=== PATIENT | male | born 1945 | race Caucasian/White ===

== ENCOUNTER 2021-11-20 06:36 | Day surgery (SDC) | payer MEDICARE, SELFPAY ==
[2021-11-14 11:18] VITALS: BMI 22.0
[2021-11-20 06:41] VITALS: BMI 20.3
[2021-11-20 06:46] VITALS: BP 122/46; PULSE 62; RESP 16; TEMP 36.1; O2SAT 99
[2021-11-20] MEDS: Lactated Ringers 1,000 ML 100 ML IVCONT (07:06)
--- NOTE | 2021-11-20 07:24 | P.HPSUR_ITS ---
Pre-Procedural Eval Section A Date of Service: 11/20/21 Section B Chief Complaint: Ulcerative (chronic) pancolitis without complicati Details of Present Illness: see H&P no changes Relevant Family History (Specify if Yes): No Relevant Social History: None Present Medications: see Short Stay Collaborative assessment Medical History: No relevant PMH History of Previous Operations: No relevant previous surgery Allergies: Allergies Allergy/AdvReac Type Severity Reaction Status Date / Time No Known Allergies Allergy Verified 11/14/21 11:18 Review of Systems Sugical H&P ROS: Negative: Constitution, Cardiovascular, Respiratory, Neurol ogical, Psychiatric, Hem-Onc, Allergic/Immunologic, Gastrointestinal, Genitourinary, Musculoskeletal, Integumentary, Endocrine and Eyes/Ears/Nose/Throat Exam Surgical H&P Exam: Normal: HEENT, Normal: Heart, Normal: Lungs, Normal: Extremities, Normal: Abdomen, Normal: Skin and Normal: Neurological Plan Diagnosis/Plan: Unchanged I have reviewed the history and physical and performed a pertinent physical examination on my patient. No changes have occurred unless specified.
--- NOTE | 2021-11-20 07:29 | P.CONAN_ITS ---
HPI - Anesthesia Eval Consult details Narrative: 76 yo male patient for colonoscopy [facility] Past Medical History Medical History (Updated 11/20/21 @ 06:59 by Bushra Victoria, RN) Elevated cholesterol Heart murmur Mitral valve prolapse Prostate cancer Ulcerative colitis Family History Family history of problems with anesthesia: No Surgical History Surgical History (Updated 11/14/21 @ 11:18 by Mohini Webber RN) H/O colonoscopy History of prostate surgery History of Problems with Anesthesia: No Social History Social History Patient Tobacco Use Status: Never used Tobacco Use of substances other than those prescribed or required for medical reasons: No Are you DNR?: No Advance Directives: No Advance Directives Information Provided: Yes Recently lost weight without trying: No Nutrition Risks: No Nutritional Risk Meds Allergies Allergy/AdvReac Type Severity Reaction Status Date / Time No Known Allergies Allergy Verified 11/14/21 11:18 Home Medications Medication Instructions Recorded Confirmed Last Taken Type folic acid 1 mg tablet 1 mg PO DAILY 11/14/21 11/14/21 Unknown History rosuvastatin 20 mg tablet 20 mg PO DAILY 11/14/21 11/14/21 Unknown History sulfasalazine 500 mg tablet 1 g PO TID 11/14/21 11/14/21 Unknown History Exam Exam Date and Time: November 20, 2021 0729 Height,Weight and Vital Signs: Height 6 ft Weight 68.039 kg Last Vital Signs Temp 97.0 F 11/20/21 06:46 Pulse 62 11/20/21 06:46 Resp 16 11/20/21 06:46 BP 122/46 L 11/20/21 06:46 Pulse Ox 99 11/20/21 06:46 Airway Mallampati Class: II TM Dist: >3cm Neck ROM: Full Loose/Missing/Broken Teeth: No Heart: RRR Lungs: CTAB Assessment and Plan Assessment Anesthesia Assessment: Anesthesia Plan Discussed and Chart Reviewed Final Anesthetic Review Family History of Problems with Anesthesia: No History of Problems with Anesthesia: No NPO: Yes ASA Class: II Final Preanesthetic Review: No Changes in Pt Med Stat, Meds/Allgs Chart Reviewed, Consent Obtained/Reviewed and Anes Risks/Benef Reviewed Patient Risk: Low Procedure Risk: Low Assessment/Block/Sedation in SS: Assess/Block/Sedation-SS Anesthetic Plan Anesthetic Plan: MAC: Disposition: Standard PACU
--- NOTE | 2021-11-20 08:21 | P.BOP_ITS ---
Brief Operative Note Date of Service: 11/20/21 Pre-op diagnosis: ulcerative colitis Post-op diagnosis: same Procedure: colonoscopy Surgeon: Javy Major Anesthesia: MAC Was an Registrar Assistant used for this Procedure?: No Estimated blood loss (mL): 5 Pathology: other Condition: stable Disposition: PACU
[2021-11-20 08:26] VITALS: BP 94/41; PULSE 67; RESP 16; TEMP 36.1; O2SAT 97
[2021-11-20 08:41] VITALS: BP 121/56; PULSE 73; RESP 18; TEMP 36.1; O2SAT 100
--- NOTE | 2021-11-20 19:48 | OP_ITS ---
SURGEON: Javy Major MD INDICATIONS: Ulcerative colitis. PREOPERATIVE DIAGNOSIS: POSTOPERATIVE DIAGNOSIS: PROCEDURE PERFORMED: ESTIMATED BLOOD LOSS: COMPLICATIONS: ANESTHESIA: ASSISTANTS: SPECIMENS: PROCEDURE: Colonoscopy to the terminal ileum with biopsy. MEDICATIONS: Monitored anesthesia care. DESCRIPTION OF PROCEDURE: History and physical performed. The risks and benefits of the procedure were explained to the patient. Informed consent was obtained. The patient was placed in the left lateral decubitus position. A digital rectal exam was performed and was found to be normal. The Olympus pediatric video colonoscope was introduced into the rectum and advanced to the cecum without difficulty. The cecum was identified by transillumination, palpation, and identification of ileocecal valve. Abdominal wall pressure was used to assist in advancement of the scope due to looping in the sigmoid. Examination was performed. The scope was removed. He tolerated the procedure well and was taken to recovery area in stable condition. FINDINGS: The terminal ileum was examined and appeared normal. This was biopsied. The visualized colonic mucosa was normal without any evidence of active colitis. There were changes of melanosis coli throughout the colon. Biopsies were obtained beginning in the cecum, extending to the rectum approximately every 10 cm. There were no raised lesions or ulcerated areas. Retroflexed examination was normal. IMPRESSION: Ulcerative colitis. RECOMMENDATIONS: Follow up the biopsy results. MD GUILHERME Brice/LUIS / [id number] MTDD
== END 2021-11-20 09:08 | disposition home or self-care (01) ==
PROVIDERS: PCP Internal Medicine; Visit Provider Internal Medicine Gastroenterology
PROC: 0DJD8ZZ Inspection of Lower Intestinal Tract, Via Natural or Artificial Opening Endoscopic (ICD-10-PCS; CPT 45378; principal; 2021-11-20 07:30)
DX: K51.00 Ulcerative (chronic) pancolitis without complications (principal); K63.89 Other specified diseases of intestine; Z85.46 Personal history of malignant neoplasm of prostate; E78.5 Hyperlipidemia, unspecified; I34.1 Nonrheumatic mitral (valve) prolapse; Z79.899 Other long term (current) drug therapy; Z98.890 Other specified postprocedural states
CPT/HCPCS: 45380; 88305

== ENCOUNTER 2023-02-25 06:29 | Day surgery (SDC) | payer MEDICARE, SELFPAY ==
--- NOTE | 2023-02-24 10:11 | HO.ANESPROP2 ---
Documented by User: Cony Rivero NP 02/24/23 10:12 HPI - Anesthesia Eval Consult details Narrative: 77yo M for Colonoscopy s/p [place] 2021 with [facility] PMF[facility] Past Medical History Medical History Elevated cholesterol Heart murmur HTN (hypertension) Mitral valve prolapse Prostate cancer Ulcerative colitis Family History Family history of problems with anesthesia: No Surgical History Surgical History H/O colonoscopy History of prostate surgery Hx of left inguinal hernia repair Hx of right inguinal hernia repair History of Problems with Anesthesia: No Social History Social History Patient Tobacco Use Status: Never used Tobacco Use of substances other than those prescribed or required for medical reasons: No Are you DNR?: No Advance Directives: No Advance Directives Information Provided: Yes Meds Allergies Allergy/AdvReac Type Severity Reaction Status Date / Time No Known Allergies Allergy Verified 02/25/23 06:40 Home Medications Medication Instructions Recorded Confirmed Last Taken Type folic acid 1 mg tablet 1 mg PO DAILY 11/14/21 02/25/23 Unknown History rosuvastatin 20 mg tablet 20 mg PO DAILY 11/14/21 02/25/23 Unknown History sulfasalazine 500 mg tablet 1 g PO TID 11/14/21 02/25/23 Unknown History losartan 25 mg tablet 25 mg PO DAILY 02/24/23 02/25/23 Unknown History Exam Exam Date and Time: February 24, 2023 1011 Assessment and Plan Assessment Anesthesia Assessment: Chart Reviewed Final Anesthetic Review Family History of Problems with Anesthesia: No History of Problems with Anesthesia: No Documented by User: Bety Olea MD 02/25/23 07:46 PMFSH Past Medical History Medical History Elevated cholesterol Heart murmur HTN (hypertension) Mitral valve prolapse Prostate cancer Ulcerative colitis Surgical History Surgical History H/O colonoscopy History of prostate surgery Hx of left inguinal hernia repair Hx of right inguinal hernia repair Social History Social History Patient Tobacco Use Status: Never used Tobacco Use of substances other than those prescribed or required for medical reasons: No Are you DNR?: No Advance Directives: No Advance Directives Information Provided: Yes Meds Allergies Allergy/AdvReac Type Severity Reaction Status Date / Time No Known Allergies Allergy Verified 02/25/23 06:40 Home Medications Medication Instructions Recorded Confirmed Last Taken Type folic acid 1 mg tablet 1 mg PO DAILY 11/14/21 02/25/23 Unknown History rosuvastatin 20 mg tablet 20 mg PO DAILY 11/14/21 02/25/23 Unknown History sulfasalazine 500 mg tablet 1 g PO TID 11/14/21 02/25/23 Unknown History losartan 25 mg tablet 25 mg PO DAILY 02/24/23 02/25/23 Unknown History Exam Airway Mallampati Class: II TM Dist: <=3cm Neck ROM: Limited Heart: rrr Lungs: cta Assessment and Plan Assessment Anesthesia Assessment: Anesthesia Plan Discussed Final Anesthetic Review NPO: Yes ASA Class: III (ulcerative colitis) Final Preanesthetic Review: No Changes in Pt Med Stat, Meds/Allgs Chart Reviewed, Consent Obtained/Reviewed and Anes Risks/Benef Reviewed Patient Risk: Low Procedure Risk: Low Anesthetic Plan Anesthetic Plan: MAC: Disposition: Standard PACU
[2023-02-25 06:41] VITALS: BMI 22.7
[2023-02-25 06:48] VITALS: BP 145/70; PULSE 58; RESP 16; TEMP 36.2; O2SAT 99
[2023-02-25] MEDS: Lactated Ringers 1,000 ML 100 ML IVCONT (07:00)
--- NOTE | 2023-02-25 07:32 | P.HPSUR_ITS ---
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 complicati Details of Present Illness: see H&P no changes Relevant Family History (Specify if Yes): No Relevant Social History: None Present Medications: see Short Stay Collaborative assessment Medical History: No relevant PMH History of Previous Operations: No relevant previous surgery Allergies: Allergies Allergy/AdvReac Type Severity Reaction Status Date / Time No Known Allergies Allergy Verified 02/25/23 06:40 Review of Systems Sugical H&P ROS: Negative: Constitution, Cardiovascular, Respiratory, Neurol ogical, Psychiatric, Hem-Onc, Allergic/Immunologic, Gastrointestinal, Genitourinary, Musculoskeletal, Integumentary, Endocrine and Eyes/Ears/Nose/Throat Exam Surgical H&P Exam: Normal: HEENT, Normal: Heart, Normal: Lungs, Normal: Extremities, Normal: Abdomen, Normal: Skin and Normal: Neurological Plan Diagnosis/Plan: Unchanged I have reviewed the history and physical and performed a pertinent physical examination on my patient. No changes have occurred unless specified. Time Spent With Patient Time: Total time managing care of this patient today ____ minutes.
--- NOTE | 2023-02-25 08:26 | PM.OP ---
Brief Operative Note Date of Service: 02/25/23 Pre-op diagnosis: ulcerative colitis Post-op diagnosis: same Surgeon: Javy Major Anesthesia: MAC Was an Marine Engine Machinist Apprentice used for this Procedure?: No Estimated blood loss (mL): 5 Pathology: other Condition: stable Disposition: PACU
[2023-02-25 08:35] VITALS: BP 100/54; PULSE 50; RESP 17; TEMP 36.7; O2SAT 98
--- NOTE | 2023-02-25 08:44 | OP_ITS ---
DATE OF SERVICE: 02/25/2023 SURGEON: Javy Major MD INDICATIONS: Ulcerative colitis and previous colonoscopy, showing sessile serrated changes on cecal biopsies. PREOPERATIVE DIAGNOSIS: POSTOPERATIVE DIAGNOSIS: PROCEDURE PERFORMED: Colonoscopy to the terminal ileum with biopsy, and snare polypectomy. ESTIMATED BLOOD LOSS: COMPLICATIONS: ANESTHESIA: Monitored anesthesia care. ASSISTANTS: SPECIMENS: DESCRIPTION OF PROCEDURE: A history and physical were performed. The risks and benefits of the procedure were explained to the patient. Informed consent was obtained. The patient was placed in the left lateral decubitus position. A digital rectal exam was performed and was found to be normal. The Olympus pediatric video colonoscope was introduced into the rectum and advanced to the cecum without difficulty. The cecum was identified by transillumination, palpation, and identification of the ileocecal valve. Examination was performed, and the scope was removed. He tolerated the procedure well and was taken to the recovery in stable condition. FINDINGS: The terminal ileum was examined and appeared normal. The visualized colonic mucosa was normal with changes of melanosis coli as previously noted on other examinations. In the cecum was a 3 x 4 sessile, slightly nodular area involving the base of the cecum and very near the appendiceal orifice, which lacked pigmentation, suggestive of a possible sessile lesion. A piece of this lesion was removed using the snare and biopsies were obtained from the remaining tissue. It was not possible to resect the entire area endoscopically. Following this, biopsies were obtained from throughout the colon. No other lesions were identified. Retroflexed examination showed small internal hemorrhoids. IMPRESSION: 1. Ulcerative colitis. 2. Colon polyp as above. RECOMMENDATION: Follow up the biopsy results. MD GUILHERME Brice/LUIS / [id number]
[2023-02-25 08:55] VITALS: BP 122/61; PULSE 55; RESP 17; TEMP 36.1; O2SAT 99
== END 2023-02-25 09:07 | disposition home or self-care (01) ==
PROVIDERS: PCP Internal Medicine Geriatric Medicine; Visit Provider Internal Medicine Gastroenterology
PROC: 0DJD8ZZ Inspection of Lower Intestinal Tract, Via Natural or Artificial Opening Endoscopic (ICD-10-PCS; CPT 45378; principal; 2023-02-25 07:30)
DX: K51.00 Ulcerative (chronic) pancolitis without complications (principal); K51.40 Inflammatory polyps of colon without complications; K63.89 Other specified diseases of intestine; K64.8 Other hemorrhoids; I10 Essential (primary) hypertension; I34.1 Nonrheumatic mitral (valve) prolapse; E78.5 Hyperlipidemia, unspecified; Z85.46 Personal history of malignant neoplasm of prostate; Z79.899 Other long term (current) drug therapy; Z98.890 Other specified postprocedural states
CPT/HCPCS: 45385; 45380; 88305